=== PATIENT | male | born 1980 | race Two or more races ===

== ENCOUNTER 2019-02-11 08:26 | Emergency (ER) | payer OTHER ==
[2019-02-11 08:39] VITALS: BP 111/69
--- NOTE | 2019-02-11 09:13 | EDPHY ---
H & P Time Seen by Provider: 02/11/19 08:54 HPI/ROS: CHIEF COMPLAINT: Right index finger laceration HISTORY OF PRESENT ILLNESS: 39-year-old male with out of-date tetanus (has received tetanus in the past) sustained accidental skin avulsion right index finger distal phalanx news at work today working with a sharp piece of metal. No paresthesia. No sensory or motor deficit. PHYSICAL EXAM (Prior to examination, patient consented to physical exam, hands were washed and my usual and customary physical exam procedures followed) 1) GENERAL: Well-developed, well-nourished, alert and oriented. Appears to be in no acute distress. 2) HEAD: Normocephalic 3) HEENT: sclera anicteric 4) LUNGS: Breathing comfortably. 5) SKIN: Right index finger distal phalanx skin avulsion with no visible osseous components. 6) MUSCULOSKELETAL: Extensor function at the MCP PIP D IP intact, FDP FDS intact. 7) NEUROLOGIC: Full sensation two-point discrimination Smoking Status: Heavy smoker Constitutional: Initial Vital Signs Temperature (C) 36.7 C 02/11/19 08:35 Heart Rate 80 02/11/19 08:35 Respiratory Rate 16 02/11/19 08:35 Blood Pressure 111/69 02/11/19 08:35 O2 Sat (%) 97 02/11/19 08:35 O2 Delivery Mode Room Air Allergies/Adverse Reactions: No Known Allergies Allergy (Unverified 02/11/19 08:35) MDM/Departure - MDM Imaging Results: Imaging Impressions Finger X-Ray 02/11/19 09:07 Impression: Traumatic soft tissue injury to the distal aspect of the right index finger, without underlying osseous injury. Images reviewed myself Procedures: Procedure: Wound management. I explained the indications, risks and benefits for both laceration repair and anesthetic administration. Verbal consent was obtained from the patient. The right index finger was anesthetized using 0.5% bupivicaine without epinephrine digital nerve block. After anesthetic administered the patient was observed for a period of time and had no apparent adverse effects. The wound was cleaned, prepped, draped in normal sterile fashion and explored to its base. No foreign body seen, no foreign bodies palpated. There were no deep structures involved. Surgicel dressing placed by ER staff resulting in hemostasis. ED Course/Re-evaluation: Care of patient under supervision of secondary supervising physician Dr Jeong - Depart Disposition: Home, Routine, Self-Care Clinical Impression: Skin avulsion Condition: Good Instructions: Skin Avulsion (ED) Additional Instructions: Return to the ER if you develop redness, swelling, discharge, warmth to the wound, red streaks going up your arm or any other symptoms that concern you. Stand Alone Forms: Work Comp Follow Up Referrals: Liam Caputo MD [Medical Doctor] - 2-3 days, call for appt.
[2019-02-11] MEDS ORDERED: TDAP ADULT 0.5 ML INJ (BOOSTRIX) IM ONE (09:20)
== END 2019-02-11 09:53 | disposition home or self-care (01) ==
PROC: 3E0T3BZ Introduction of Anesthetic Agent into Peripheral Nerves and Plexi, Percutaneous Approach (ICD-10-PCS; principal; 2019-02-11)
DX: S61.210A Laceration without foreign body of right index finger without damage to nail, initial encounter (principal); W26.8XXA Contact with other sharp object(s), not elsewhere classified, initial encounter; Y99.0 Civilian activity done for income or pay; Y93.89 Activity, other specified